=== PATIENT | male | born 1970 | race Caucasian/White ===

== ENCOUNTER → 2021-01-12 08:02 | Outpatient (CLI) | payer OTHER, SELFPAY ==
[2021-01-12 12:20] LABS: Absolute Lymphocyte Count 1.84 X10^3/uL (0.83-4.51); Absolute Neutrophil Count 2.5 X10^3/uL (2.0-7.7); Basophil# 0.05 X10^3/uL; Eosinophil# 0.15 X10^3/uL; Hematocrit 49.6 % (40-54); Hemoglobin 16.1 g/dL (13.0-16.5); Lymphocyte # 1.84 X10^3/ul (0.83-4.51); Lymphocyte % 36.7 % (19-41); Mean Corp Hgb Conc 32.5 g/dL (32-36); Mean Corpuscular Hgb 26.6 pg (27.0-32.0); Mean Corpuscular Volume 81.8 fL (80-94); Mean Platelet Vol. 10.7 fl (6.2-12.0); Monocyte# 0.43 X10^3/uL; Monocyte% 8.6 % (0-10); NRBC Flagged by Analyzer 0 % (0-5); Neutrophil # 2.53 X10^3/uL (2.7-7.7); Neutrophil % 50.3 % (47-70); Platelet Count 245 K/mm3 (150-450); RBC Distribution Width CV 13.7 % (11.6-14.6); RBC Distribution Width SD 40.4 fl (35.1-43.9); Red Blood Count 6.06 M/mm3 (4.6-6.2)
[2021-01-12 12:35] LABS: Vitamin D,25 Hydroxy 27.4 ng/mL
[2021-01-12 12:43] LABS: Hemoglobin A1c 5.7 % (3.8-5.6)
[2021-01-12 12:57] LABS: ALB/GLOB Ratio 0.9 RATIO (0.9-2.4); AST(SGOT) 25 U/L (15-37); Alanine Aminotransfer ALT/SGPT 40 U/L (16-61); Albumin, Serum 3.5 g/dL (3.2-5.0); Alkaline Phosphatase 65 U/L (45-117); Anion Gap 8 (5-15); BUN 20 mg/dL (7-18); BUN/Creat Ratio 16.1 RATIO (10-20); Chloride 106 mmol/L (98-107); Cholesterol 154 mg/dL (200); Creatinine, Serum 1.24 mg/dL (0.70-1.30); EST Glomerular Filtration Rate 66 mL/min (>60); Est Glom Filt Rate - Afr Amer 79 mL/min (>60); Globulin 3.7 g/dL (2.2-4.2); Glucose 106 mg/dL (74-106); High Density Lipoprotein 27 mg/dL; PSA,Total - Annual Screen 1.21 ng/mL (0.00-4.00); Potassium 4.1 mmol/L (3.5-5.1); Protein, Total 7.2 g/dL (6.4-8.2); Sodium Level 137 mmol/L (136-145); Thyroid Stim Hormone (TSH) 1.38 uIU/mL (0.358-3.74); Triglycerides 76 mg/dL; Very Low Density Lipoprotein 15 mg/dL (5-40)
[2021-01-16 13:07] LABS: Testosterone, Free 18.71 ng/dL (5.00-21.00)
[2021-01-16 15:00] LABS: Testosterone, % Free 4.34 % (1.50-4.20); Testosterone, Total 431 ng/dL (264-916)
== END ==
PROVIDERS: PCP Internal Medicine; Referring Provider Internal Medicine; Visit Provider Internal Medicine
DX: G47.33 Obstructive sleep apnea (adult) (pediatric) (principal); E66.9 Obesity, unspecified; R79.89 Other specified abnormal findings of blood chemistry; E29.1 Testicular hypofunction; Z13.220 Encounter for screening for lipoid disorders; Z12.5 Encounter for screening for malignant neoplasm of prostate
CPT/HCPCS: 36415; 80053; 80061; 82306; 83036; 84153; 84402; 84403; 84443; 85025; G0103

== ENCOUNTER → 2021-05-30 | Outpatient (CLI) | payer OTHER, SELFPAY | END | disposition home or self-care (01) | LOC: PAT 09-12 14:27 | PROVIDERS: PCP Internal Medicine; Referring Provider Internal Medicine; Visit Provider Internal Medicine Gastroenterology | DX: Z20.822 Contact with and (suspected) exposure to COVID-19 (principal) | CPT/HCPCS: 87426; C9803 ==

== ENCOUNTER → 2021-08-04 | Outpatient (CLI) | payer OTHER, SELFPAY ==
[2021-08-04 12:00] LABS: Absolute Neutrophil Count 2.3 X10^3/uL (2.0-7.7); Basophil# 0.04 X10^3/uL; Basophil% 0.9 % (0-1); Eosinophil# 0.11 X10^3/uL; Eosinophils% 2.5 % (0-5); Hematocrit 48.9 % (40-54); Hemoglobin 15.4 g/dL (13.0-16.5); Lymphocyte % 36.4 % (19-41); Mean Corp Hgb Conc 31.5 g/dL (32-36); Mean Corpuscular Hgb 26.1 pg (27.0-32.0); Mean Platelet Vol. 11.9 fl (6.2-12.0); Monocyte# 0.33 X10^3/uL; Monocyte% 7.5 % (0-10); NRBC Flagged by Analyzer 0 % (0-5); Neutrophil % 52.2 % (47-70); Platelet Count 238 K/mm3 (150-450); RBC Distribution Width CV 14.5 % (11.6-14.6); RBC Distribution Width SD 43.4 fl (35.1-43.9); Red Blood Count 5.89 M/mm3 (4.6-6.2); White Blood Count 4.4 K/mm3 (4.4-11.0)
[2021-08-04 12:18] LABS: ALB/GLOB Ratio 1.1 RATIO (0.9-2.4); AST(SGOT) 43 U/L (15-37); Alanine Aminotransfer ALT/SGPT 72 U/L (16-61); Albumin, Serum 3.6 g/dL (3.2-5.0); Alkaline Phosphatase 72 U/L (45-117); Anion Gap 5 (5-15); BUN 24 mg/dL (7-18); BUN/Creat Ratio 17.6 RATIO (10-20); Calcium,Total 8.9 mg/dL (8.5-10.1); Chloride 106 mmol/L (98-107); Creatinine, Serum 1.36 mg/dL (0.70-1.30); EST Glomerular Filtration Rate 59 mL/min (>60); Est Glom Filt Rate - Afr Amer 71 mL/min (>60); Globulin 3.3 g/dL (2.2-4.2); Glucose 170 mg/dL (74-106); Potassium 4.5 mmol/L (3.5-5.1); Protein, Total 6.9 g/dL (6.4-8.2); Sodium Level 137 mmol/L (136-145)
[2021-08-04 12:52] LABS: Hemoglobin A1c 5.9 % (3.8-5.6)
[2021-08-08 10:09] LABS: Testosterone, Free 15.94 ng/dL (5.00-21.00)
[2021-08-08 16:42] LABS: Testosterone, % Free 3.03 % (1.50-4.20); Testosterone, Total 526 ng/dL (264-916)
== END | disposition home or self-care (01) ==
LOC: BIMLAB 08:14
PROVIDERS: PCP Internal Medicine; Referring Provider Internal Medicine; Visit Provider Internal Medicine
DX: G47.33 Obstructive sleep apnea (adult) (pediatric) (principal); R79.89 Other specified abnormal findings of blood chemistry; E29.1 Testicular hypofunction; G47.30 Sleep apnea, unspecified; E66.9 Obesity, unspecified; R73.09 Other abnormal glucose
CPT/HCPCS: 36415; 80053; 83036; 84402; 84403; 85025

== ENCOUNTER → 2021-08-15 | Outpatient (CLI) | payer SELFPAY, OTHER ==
--- NOTE | 2021-08-15 10:40 | US_ITS ---
STUDY: ABDOMINAL ULTRASOUND - RIGHT UPPER QUADRANT REASON FOR VISIT: Male, 51 years old Elevated LFTs TECHNIQUE: Ultrasound evaluation of the right upper quadrant was performed with real-time and static velasquez-scale imaging. TECHNICAL QUALITY: Adequate. COMPARISON: None. FINDINGS: Liver: The liver measures 14.3 cm. There is increased echogenicity consistent with fatty infiltration. The bile ducts are within normal limits. There is hepatic color flow. The direction of portal flow is hepatopetal. There is no demonstrated mass lesion. Gallbladder: Normal distended gallbladder. The gallbladder wall measures 2.5 mm. There is a negative sonographic Felder''s sign. There is no pericholecystic fluid. There are no gallstones. Common Bile Duct (C.B.D.): The common bile duct measures 4.4 mm. Pancreas: Normal size of the head, body of the pancreas. The tail portion is obscured due to overlying bowel gas. There is normal echogenicity of the pancreas. There is no demonstrated pancreatic mass or cyst. Right Kidney: Normal size of the right kidney. The right kidney measures 12 cm x 6 cm x 5 cm. Normal renal cortex. The right cortex measures 1.9 cm. There is no demonstrated renal mass or cyst. There is no right hydronephrosis. US/Liver IMPRESSION: Fatty infiltration of the liver. Electronically Signed: Brendan Romero MD at 12:16 EDT ,
== END | disposition home or self-care (01) ==
PROVIDERS: PCP Internal Medicine; Referring Provider Internal Medicine; Visit Provider Internal Medicine
DX: R79.89 Other specified abnormal findings of blood chemistry (principal)
CPT/HCPCS: 76705

== ENCOUNTER → 2022-08-09 | Outpatient (CLI) | payer OTHER, SELFPAY ==
[2022-08-09 12:29] LABS: Absolute Lymphocyte Count 1.63 X10^3/uL (0.83-4.51); Absolute Neutrophil Count 2.1 X10^3/uL (2.0-7.7); Basophil# 0.03 X10^3/uL; Basophil% 0.7 % (0-1); Eosinophil# 0.08 X10^3/uL; Eosinophils% 1.9 % (0-5); Hematocrit 46.2 % (40-54); Lymphocyte # 1.63 X10^3/ul (0.83-4.51); Lymphocyte % 38.3 % (19-41); Mean Corp Hgb Conc 30.3 g/dL (32-36); Mean Corpuscular Hgb 24.9 pg (27.0-32.0); Mean Corpuscular Volume 82.1 fL (80-94); Mean Platelet Vol. 11.4 fl (6.2-12.0); Monocyte# 0.39 X10^3/uL; Monocyte% 9.2 % (0-10); NRBC Flagged by Analyzer 0 % (0-5); Neutrophil # 2.13 X10^3/uL (2.7-7.7); Neutrophil % 49.9 % (47-70); Platelet Count 241 K/mm3 (150-450); RBC Distribution Width CV 13.8 % (11.6-14.6); RBC Distribution Width SD 40.7 fl (35.1-43.9); Red Blood Count 5.63 M/mm3 (4.6-6.2); White Blood Count 4.3 K/mm3 (4.4-11.0)
[2022-08-09 12:51] LABS: Insulin 9.3 mU/L (2.6-37.6)
[2022-08-09 13:05] LABS: AST(SGOT) 25 U/L (15-37); Alanine Aminotransfer ALT/SGPT 32 U/L (16-61); Albumin, Serum 3.5 g/dL (3.2-5.0); Alkaline Phosphatase 75 U/L (45-117); Anion Gap 6 (5-15); BUN 20 mg/dL (7-18); BUN/Creat Ratio 14.5 RATIO (10-20); Calcium,Total 9.2 mg/dL (8.5-10.1); Chloride 107 mmol/L (98-107); Cholesterol 142 mg/dL (200); Creatinine, Serum 1.38 mg/dL (0.70-1.30); EST Glomerular Filtration Rate 58 mL/min (>60); Est Glom Filt Rate - Afr Amer 70 mL/min (>60); Globulin 3.5 g/dL (2.2-4.2); Glucose 97 mg/dL (74-106); High Density Lipoprotein 41 mg/dL; Potassium 4.4 mmol/L (3.5-5.1); Sodium Level 139 mmol/L (136-145); Thyroid Stim Hormone (TSH) 2.12 uIU/mL (0.358-3.74); Triglycerides 54 mg/dL; Very Low Density Lipoprotein 11 mg/dL (5-40)
[2022-08-09 13:48] LABS: Hemoglobin A1c 5.5 % (3.8-5.6)
[2022-08-15 14:09] LABS: Testosterone, % Free 3.38 % (1.50-4.20); Testosterone, Total 429 ng/dL (264-916)
== END | disposition home or self-care (01) ==
LOC: BIMLAB 08:00
PROVIDERS: PCP Internal Medicine; Visit Provider Internal Medicine
DX: R73.9 Hyperglycemia, unspecified (principal); E29.1 Testicular hypofunction; Z13.220 Encounter for screening for lipoid disorders; E66.9 Obesity, unspecified; K42.9 Umbilical hernia without obstruction or gangrene
CPT/HCPCS: 36415; 80053; 80061; 83036; 83525; 84402; 84403; 84443; 85025

== ENCOUNTER 2022-08-16 20:20 | Emergency (ER) | payer OTHER, SELFPAY ==
[2022-08-16 20:21] VITALS: BP 170/92; PULSE 75; RESP 18; TEMP 36.8; O2SAT 100; BMI 37.0
--- NOTE | 2022-08-16 20:48 | CONS.ORTHO ---
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 Believed to have a pectoralis major rupture. [facility] Medical History (Updated 08/16/22 @ 20:49 by Eric Espinal MD) Alcohol use Arthritis COVID CPAP (continuous positive airway pressure) dependence Non-smoker Shoulder pain Sleep apnea Wears glasses Home Medications cetirizine 5 mg-pseudoephedrine ER 120 mg tablet,extended release,12hr (Zyrtec-D) 1 tab PO Q12H 01/03/21 [History Last Taken Unknown] fluticasone propionate 50 mcg/actuation nasal spray,suspension 1 spray intranasal DAILY 01/03/21 [History Last Taken Unknown] melatonin 10 mg tablet 20 mg PO HS PRN Sleep 01/03/21 [History Last Taken Unknown] sildenafil 100 mg tablet (Viagra) 100 mg PO DAILY PRN sexual activity #10 tabs 03/02/22 [Rx Last Taken Unknown] ropinirole 0.25 mg tablet 0.75 mg PO QHS #90 tabs 08/08/22 [Rx Last Taken Unknown] testosterone cypionate 200 mg/mL intramuscular kit 200 mg IM Q10D #6 ea 08/15/22 [Rx Last Taken Unknown] Allergy/AdvReac Type Severity Reaction Status Date / Time Penicillins Allergy Severe Swelling Verified 08/16/22 20:23 sulfamethoxazole Allergy Severe Hives Verified 08/16/22 20:23 [From Bactrim] trimethoprim [From Bactrim] Allergy Severe Hives Verified 08/16/22 20:23 Family History Other CVA (cerebral vascular accident) Diabetes Surgical History H/O nasal septoplasty Myringotomy tube status Social History Smoking Status: Never smoker alcohol intake: current alcohol intake frequency: a few times a month Alcohol type: beer substance use type: does not use Vital Signs Vital Signs Vital Signs: 08/16/22 20:21 Temperature 98.3 F Temperature Source Temporal Pulse Rate 75 Respiratory Rate 18 Blood Pressure 170/92 H Blood Pressure Mean 118 Pulse Ox 100 Oxygen Delivery Method Room Air Weight Weight: 258 lb 6.108 oz Body Mass Index (BMI) 37.0 Assessment & Plan Assessment/Plan (1) Shoulder pain: PLAN: 52 M with suspected pec major rupture per ED. no other concerns. Recommended to provider to obtain plain films to rule out other derangement, and have the patient see me in the office tomorrow to arrange for stat MRI of shoulder / chest. Sling for comfort, rest ice for now.
--- NOTE | 2022-08-16 20:50 | RAD_ITS ---
STUDY: X-RAY - RIGHT SHOULDER REASON FOR EXAM: Male, 52 years old. pain TECHNIQUE: 4 view(s) of the shoulder. COMPARISON: None. FINDINGS: Normal glenohumeral articulation. Normal acromioclavicular joint. Normal acromion. Normal humeral head and visualized proximal humerus. The soft tissue structures are unremarkable. There is no demonstrated fracture. Normal visualized pulmonary apex. RAD/Shoulder min 2 Views IMPRESSION: Normal x-ray examination of the shoulder. Electronically Signed: Trip Baron MD at 21:06 EDT ,
--- NOTE | 2022-08-16 20:56 | EDS_ITS ---
HPI <ELDER [place] - Last Filed: 08/16/22 21:02> History of Present Illness Chief Complaint: Upper Extremity Injury Narrative Narrative: Patient is a 52-year-old male with history of restless leg syndrome who presents to the emergency department with a chest injury following heavy bench pressing. 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 He was lifting heavy weight during a bench press when he felt something give out in his chest. Patient does have ecchymosis, bruising to the right pectoral muscle as well as some irregularity on the right side. He denies any other injury. [facility] <ELDER [place] - Last Filed: 08/16/22 21:02> [facility] Medical History (Updated 08/16/22 @ 21:00 by ELDER [place]) Alcohol use Arthritis COVID CPAP (continuous positive airway pressure) dependence Non-smoker Shoulder pain Sleep apnea Wears glasses Home Medications cetirizine 5 mg-pseudoephedrine ER 120 mg tablet,extended release,12hr (Zyrtec- D) 1 tab PO Q12H 01/03/21 [History Last Taken Unknown] fluticasone propionate 50 mcg/actuation nasal spray,suspension 1 spray intranasal DAILY 01/03/21 [History Last Taken Unknown] melatonin 10 mg tablet 20 mg PO HS PRN Sleep 01/03/21 [History Last Taken Unknown] sildenafil 100 mg tablet (Viagra) 100 mg PO DAILY PRN sexual activity #10 tabs 03/02/22 [Rx Last Taken Unknown] ropinirole 0.25 mg tablet 0.75 mg PO QHS #90 tabs 08/08/22 [Rx Last Taken Unknown] testosterone cypionate 200 mg/mL intramuscular kit 200 mg IM Q10D #6 ea 08/15/22 [Rx Last Taken Unknown] hydrocodone-acetaminophen 5-325mg 5mg-325mg 1 tab PO Q4H PRN PRN Pain 3 days #10 TABLETS 08/16/22 [Rx Last Taken Unknown] naproxen 500 mg tablet (Naprosyn) 500 mg PO BID PRN pain #20 tabs 08/16/22 [Rx Last Taken Unknown] Allergy/AdvReac Type Severity Reaction Status Date / Time Penicillins Allergy Severe Swelling Verified 08/16/22 20:23 sulfamethoxazole Allergy Severe Hives Verified 08/16/22 20:23 [From Bactrim] trimethoprim [From Bactrim] Allergy Severe Hives Verified 08/16/22 20:23 Family History Other CVA (cerebral vascular accident) Diabetes Surgical History (Updated 08/16/22 @ 22:[address] Joesph Bateman MD) H/O nasal septoplasty Myringotomy tube status Social History Smoking Status: Never smoker alcohol intake: current alcohol intake frequency: a few times a month Alcohol type: beer substance use type: does not use ROS <ELDER [place] - Last Filed: 08/16/22 21:02> ROS ED ROS Narrative Constitutional: Negative for fever, chills, weight loss, weakness Eyes: Negative for vision loss, vision change, double vision ENT: Negative for any sore throat, ear pain, congestion Cardiovascular: Negative for any chest pain, tightness, palpitations Respiratory: Negative for any cough, sputum production, hemoptysis, dyspnea, dyspnea on exertion, orthopnea Gastrointestinal: Negative for any abdominal pain, nausea, vomiting, diarrhea, constipation, blood in stool, blood in vomit : Negative for any urinary frequency, dysuria, retention, blood in urine Muscle skeletal: Negative for any muscle joint pain, stiffness, myalgias, arthralgias, neck pain, back pain. Positive for right shoulder ecchymosis, right-sided pectoral pain Neurological: Negative for any headache, syncope, numbness or tingling, dizziness Skin: Negative for any rashes, lumps, itching, abrasions, lacerations Psychiatric: Negative for any depression, anxiety, stress, suicidal ideation, homicidal ideation Hematologic: Negative for any easy bruising, excessive bruising, easy bleeding Allergies: Negative for any eczema, hives, rash EXAM <ELDER [place] Last Filed: 08/16/22 21:02> Physical Exam Const Vital Signs: 08/16/22 20:21 Temperature 98.3 F Temperature Source Temporal Pulse Rate 75 Respiratory Rate 18 Blood Pressure 170/92 H Blood Pressure Mean 118 Pulse Ox 100 Oxygen Delivery Method Room Air MDM <ELDER [place] - Last Filed: 08/16/22 21:02> [facility] Treatment and Re-Evaluation Narrative: Patient appears generally well, patient appears nontoxic, vital signs are stable. All radiologic examinations were read, reviewed by the emergency department attending. From these reads, a plan of care will be put in place. Patient presents the emergency department after sustaining a pectoral injury while bench pressing heavy weight. Patient's physical examination is consistent with a pectoral tear. Patient has ecchymosis laterally with some edema proximal to shoulder peer as well as some sagging of the nipple. There is some irregularity of the pectoralis muscle between the right and left. I did speak with Dr. Espinal from orthopedics. He will see this patient outpatient. I did order a shoulder x-ray, this was unremarked for any acute process. Patient will be given anti-inflammatories as well as pain medicine for home. He is instructed to follow-up with orthopod. He has no further questions. He was given return precaution. Patient stable for discharge <Dr. Joseph Bateman MD - Last Filed: 08/16/22 22:52> [facility] Narrative Medical decision making narrative: Seen and evaluated independently and in conjunction with nurse practitioner. Agree with notes above unless documented otherwise. Sudden onset pain in the right chest wall while performing heavy bench pressing. No pain with moving about the shoulder. Exam: Ecchymosis medial proximal right upper arm, asymmetric swelling right pectoralis with prominence medially and lowered nipple, all consistent with acute pectoralis rupture. Full range of motion about the shoulder without any bony tenderness there or the clavicle or acromioclavicular joint. Three-view x-rays of the right shoulder obtained, on my interpretation no sign of any acute shoulder injury or coracoid process avulsion. Discussed with orthopedics for follow-up. Discharge Plan Triage Chief Complaint: Upper Extremity Injury ED Midlevel Provider: Ayaan Gooden ED Provider: Joseph Bateman Dx/Rx/DC Orders Clinical Impression: Pectoralis muscle rupture Instructions: ED Chest Wall Strain Prescriptions: New naproxen [Naprosyn] 500 mg tablet 500 mg PO BID PRN (Reason: pain) Qty: 20 0RF hydrocodone-acetaminophen 5-325 mg tablet 1 tab PO Q4H PRN PRN (Reason: Pain) 3 Days Qty: 10 0RF No Action cetirizine-pseudoephedrine [Zyrtec-D] 5-120 mg tablet extended release 12 hr 1 tab PO Q12H fluticasone propionate 50 mcg/actuation spray,suspension 1 spray intranasal DAILY Rx Instructions: administer into each nostril melatonin 10 mg tablet 20 mg PO HS PRN (Reason: Sleep) ropinirole 0.25 mg tablet 0.75 mg PO QHS Qty: 90 1RF Rx Instructions: Take one tab nightly for one week, then two tabs nightly for one week, then three tabs nightly thereafter. sildenafil [Viagra] 100 mg tablet 100 mg PO DAILY PRN (Reason: sexual activity) Qty: 10 2RF Rx Instructions: administer 30 minutes to 4 hours before activity testosterone cypionate 200 mg/mL kit 200 mg IM Q10D Qty: 6 1RF Primary Care Provider: Yolette Rubio Referrals: Yolette Rubio MD [Primary Care Provider] - Eric Espinal MD [Med Staff - Active Staff] - Activity Restrictions/Additional Instructions: Please continue to ice, you may use anti-inflammatories and pain medicine. Please return for worsening symptoms. Follow-up with orthopedics, call for appointment tomorrow. Disposition Disposition: Home, Self Care Discharge Date/Time: 08/16/22 21:09
[2022-08-16 21:08] VITALS: PULSE 69; RESP 16; O2SAT 97
== END 2022-08-16 21:09 | disposition home or self-care (01) ==
PROVIDERS: Emergency Provider Emergency Medicine; PCP Internal Medicine; Visit Provider Emergency Medicine
DX: S46.811A Strain of other muscles, fascia and tendons at shoulder and upper arm level, right arm, initial encounter (principal); R60.9 Edema, unspecified; S40.011A Contusion of right shoulder, initial encounter; X50.0XXA Overexertion from strenuous movement or load, initial encounter
CPT/HCPCS: 73030; 99282

== ENCOUNTER → 2022-08-24 | Outpatient (CLI) | payer OTHER, SELFPAY ==
--- NOTE | 2022-08-24 15:34 | MRI_ITS ---
EXAM: MR RIGHT UPPER EXTREMITY WITHOUT INTRAVENOUS CONTRAST, SHOULDER CLINICAL INDICATION: injury, INSTABILITY, PAIN AT PECT ATTACHMENT TECHNIQUE: Multiplanar and multisequence MR images of the right shoulder without intravenous contrast. COMPARISON: No relevant prior studies available. FINDINGS: TENDONS: SUPRASPINATUS: Unremarkable. No supraspinatus tendon tear. INFRASPINATUS: Low-grade articular sided tear involving the infraspinatus tendon footprint. SUBSCAPULARIS: Unremarkable. Intact. TERES MINOR: Unremarkable. Intact. BICEPS BRACHII, LONG HEAD: Unremarkable. The extra-articular biceps tendon is in the bicipital groove. The intra-articular biceps tendon is normal. LIGAMENTS: GLENOHUMERAL: Unremarkable. Intact. MUSCLES: Unremarkable. No rotator cuff muscle atrophy. FLUID: Unremarkable. No joint effusion. No significant fluid in the subacromial/subdeltoid bursa. CARTILAGE: Unremarkable. Articular cartilage intact. GLENOID LABRUM: Unremarkable. Intact, limited evaluation on non-arthrographic exam. BONES/JOINTS: Moderate hypertrophic degenerative changes acromioclavicular joint with mild mass effect on the underlying soft tissues. Type II acromion with curved undersurface. No subacromial enthesophyte or os acromiale. No fracture. No abnormal bone marrow signal. OTHER SOFT TISSUES: Unremarkable. No rotator interval edema. MRI/Upper Ext Joint Only(Routine) IMPRESSION: Low-grade articular sided partial-thickness tear involving the infraspinatus tendon footprint. No other significant rotator cuff or labral tear. Intact long head of biceps tendon. Mild to moderate hypertrophic degenerative changes of the acromioclavicular joint. Electronically Signed: Ruperto Finnegan MD at 21:50 EDT ,
--- NOTE | 2022-08-24 15:34 | MRI_ITS ---
HISTORY: injury -- pectoralis major Date: 08/24/2022 3:44 PM Technique: MRI examination obtained with multiplanar multi echo imaging. Location: RIGHT shoulder, RIGHT chest wall. Contrast: No contrast administered Comparison: No previous for comparison FINDINGS: BONY ELEMENTS: 1. Normal alignment bony elements without evidence of fracture malalignment. No destructive bony process noted. 2. There is normal alignment bony elements of the shoulder, glenohumeral joint. Mild AC joint degenerative change noted. JOINT SPACES: 1. Evaluation of the glenohumeral joint and LEFT shoulder under separate dictation. DEEP MUSCULAR COMPARTMENTS: 1. There is significant edema involving the lateral aspect of the pectoralis major. Pectoralis minor appears to be intact. The sternal, clavicular, and the upper abdominal slips of the pectoralis major appear to be involved with significant edema involving the lateral aspect of the muscle. Significant edema within the musculotendinous junction of the sternal and clavicular heads. Small slip of the inferior abdominal fibers of the pectoralis appear intact. Findings are consistent with a incomplete musculotendinous type II tear.. 2. Normal appearance of the deltoid. Long and short heads of the biceps are intact. Normal appearance of the coracobrachialis. 3. Rotator cuff to be detailed in separate report. NEURAL VASCULAR COMPARTMENTS: 1. Normal appearance of the neural vascular compartments SUBCUTANEOUS SOFT TISSUES. 1. Normal appearance of visualized obtained soft tissues. No soft tissue stranding, fluid. No masses or abscess accumulation. MRI/Chest without Contrast IMPRESSION: 1. Significant edema involving the lateral aspect of the RIGHT pectoralis major with apparent retraction, the tendinous anchor on the humerus/ridge of the intertubercular groove appears intact. The most inferior segment of the pectoralis major appears intact however the majority of the remaining sternal and clavicular heads appear to be torn at the musculotendinous junction. Findings are consistent with a incomplete type II tear. 2. Remaining muscular elements including pectoralis minor, teres, and coracobrachialis appear intact. Short and long head of the biceps appear intact. 3. Following review of the rotator cuff and glenohumeral joint and separate dedicated report. Electronically Signed: Broderick Hager MD at 19:04 EDT ,
== END | disposition home or self-care (01) ==
LOC: MRI 15:18
PROVIDERS: PCP Internal Medicine; Referring Provider Orthopaedic Surgery Sports Medicine; Visit Provider Orthopaedic Surgery Sports Medicine
DX: S99.011A Salter-Harris Type I physeal fracture of right calcaneus, initial encounter for closed fracture (principal); M25.519 Pain in unspecified shoulder; X58.XXXA Exposure to other specified factors, initial encounter
CPT/HCPCS: 71550; 73221

== ENCOUNTER 2022-09-03 09:13 | Day surgery (SDC) | payer OTHER, SELFPAY ==
[2022-09-03] VITALS (9 sets, daily range): BP systolic 125–149; BP diastolic 65–93; PULSE 54–75; RESP 16–18; TEMP 36.1–36.7; O2SAT 95–100; BMI 36.3
--- NOTE | 2022-09-03 09:27 | EKG12_ITS ---
Test Reason : PRE OP Blood Pressure : / mmHG Vent. Rate : 065 BPM Atrial Rate : 065 BPM P-R Int : 214 ms QRS Dur : 094 ms QT Int : 368 ms P-R-T Axes : 021 023 026 degrees QTc Int : 382 ms Sinus rhythm with 1st degree A-V block Otherwise normal ECG No previous ECGs available Confirmed by ANTONIO HAGAN, ASTRID ([id number]), sound editor KENNEDY CASTANON ([id number]) on 09/06/2022 10:40:44 AM Referred By: Eric Espinal Confirmed By:ASTRID ALVAREZ MD
[2022-09-03] MEDS: Lactated Ringers 1,000 ML 15 ML IV (10:03)
--- NOTE | 2022-09-03 10:49 | HP.PCM_ITS ---
HPI - General HPI Narrative DEMIAN OLIVA, is a 52 M who presents for right pectoralis major repair, possible allograft. We discussed the cons risks and benefits of using the allograft including the cost of that he was quoted $5-$8000. This may be necessary in cases where the tendon stump is extremely short or of poor quality. This will be an intraoperative decision. We discussed the recovery risks alternatives and benefits of the surgery as well as narcotic counseling and he will be in a sling afterwards follow-up in 2 weeks time change the bandage every few days but otherwise leave the Steri-Strips in place. He understood no further questions or concerns I marked the right shoulder he wished to proceed. MR#: [id number] Acct: [id number] Name: DEMIAN OLIVA Rep #: [id number] : 1970 Provider: Dr. Eric Espinal MD Age/Sex: 52/M Location: [facility] Status: Signed Intake Vital Signs 08/27/2306:47 Height 5 ft 10 in Weight: 254 lb BMI 36.4 BP 148/81 H Blood Pressure Location Rt brachial Position Sitting Respiration 17 Pulse Source Monitor Temp 97.2 F L Temp Source Temporal Pulse Oximetry (%) 96 Oxygen Delivery Method room air Intake Visit Reasons: RIGHT SHOULDER Chief Complaint: umbilical hernia Allergies Penicillins Allergy (Severe, Verified 08/30/22 14:55) Swellingsulfamethoxazole [From Bactrim] Allergy (Severe, Verified 08/30/22 14:55) Hivestrimethoprim [From Bactrim] Allergy (Severe, Verified 08/30/22 14:55) Hives Medications cetirizine 5 mg-pseudoephedrine ER 120 mg tablet,extended release,12hr (Zyrtec- D) 1 tab PO Q12H 01/03/21 [History Confirmed 08/30/22] fluticasone propionate 50 mcg/actuation nasal spray,suspension 1 spray in tranasal DAILY 01/03/21 [History Confirmed 08/30/22] melatonin 10 mg tablet 20 mg PO HS PRN Sleep 01/03/21 [History Confirmed 08/30/22] sildenafil 100 mg tablet (Viagra) 100 mg PO DAILY PRN sexual activity #10 tabs 03/02/22 [Rx Confirmed 08/30/22] ropinirole 0.25 mg tablet 0.75 mg (3 x 0.25 mg) PO QHS #90 tabs 08/08/22 [Rx Confirmed 08/30/22] testosterone cypionate 200 mg/mL intramuscular kit 200 mg IM Q10D #6 ea 08/15/22 [Rx Confirmed 08/30/22] PFSH Medical History Alcohol use Arthritis COVID CPAP (continuous positive airway pressure) dependence Non-smoker Shoulder pain Sleep apnea Wears glasses Surgical History H/O nasal septoplasty Myringotomy tube status Family History Other CVA (cerebral vascular accident) Diabetes Social History Smoking Status: Never smoker alcohol intake: current alcohol intake frequency: a few times a month Alcohol type: beer substance use type: does not use HPI RIGHT SHOULDER Details: Parts of this documentation were recorded by a scribe, this documentation accurately reflects the service provided and the decisions made by me, Dr. Eric Espinal MD 08/30/22 [id number]. DEMIAN OLIVA is a 52 year old M here today for follow-up right shoulder and chest MRI to assess for pectoralis major rupture. Ortho Exam General General: Yes no acute distress Neurologic: Yes alert and Yes oriented x3 Psychologic: Yes reasonable and appropriate Supplemental Info [facility] Imaging Services [address] [place] [id number] Chest without Contrast MR#: [id number] Acct: [id number] Name: DEMIAN OLIVA Rep #: [id number] : 1970 M 52 From: Broderick Hager MD PCP: Dr. Yolette Rubio MD Status: REG CLI Study: Chest without Contrast Date of Exam: 08/24/22 Exam# [id number] Ordering Dr: Eric Espinal MD HISTORY: injury -- pectoralis major Date: 08/24/2022 3:44 PM Technique: MRI examination obtained with multiplanar multi echo imaging. Location: RIGHT shoulder, RIGHT chest wall. Contrast: No contrast administered Comparison: No previous for comparison FINDINGS: BONY ELEMENTS: 1. Normal alignment bony elements without evidence of fracture malalignment. No destructive bony process noted. 2. There is normal alignment bony elements of the shoulder, glenohumeral joint. Mild AC joint degenerative change noted. JOINT SPACES: 1. Evaluation of the glenohumeral joint and LEFT shoulder under separate dictation. DEEP MUSCULAR COMPARTMENTS: 1. There is significant edema involving the lateral aspect of the pectoralis major. Pectoralis minor appears to be intact. The sternal, clavicular, and the upper abdominal slips of the pectoralis major appear to be involved with significant edema involving the lateral aspect of the muscle. Significant edema within the musculotendinous junction of the sternal and clavicular heads. Small slip of the inferior abdominal fibers of the pectoralis appear intact. Findings are consistent with a incomplete musculotendinous type II tear.. 2. Normal appearance of the deltoid. Long and short heads of the biceps are intact. Normal appearance of the coracobrachialis. 3. Rotator cuff to be detailed in separate report. NEURAL VASCULAR COMPARTMENTS: 1. Normal appearance of the neural vascular compartments SUBCUTANEOUS SOFT TISSUES. 1. Normal appearance of visualized obtained soft tissues. No soft tissue stranding, fluid. No masses or abscess accumulation. MRI/Chest without Contrast IMPRESSION: 1. Significant edema involving the lateral aspect of the RIGHT pectoralis major with apparent retraction, the tendinous anchor on the humerus/ridge of the intertubercular groove appears intact. The most inferior segment of the pectoralis major appears intact however the majority of the remaining sternal and clavicular heads appear to be torn at the musculotendinous junction. Findings are consistent with a incomplete type II tear. 2. Remaining muscular elements including pectoralis minor, teres, and coracobrachialis appear intact. Short and long head of the biceps appear intact. 3. Following review of the rotator cuff and glenohumeral joint and separate dedicated report. Electronically Signed: Broderick Hager MD at 19:04 EDT , Coding Level of Care Code Off vis,est,level 3 Diagnoses Pectoralis muscle rupture S29.011A Assessment and Plan Assessment and Plan (1) Pectoralis muscle rupture: Status: Inactive Plan: 52-year-old man with a right pectoralis major tendon rupture. Discussed again pros and cons risks and benefits of nonoperative versus operative repair. 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 He would like to go ahead with surgery. We have booked and consented for right pectoralis major repair possible allograft tissue in the form of an Arthrex dermal acellular allograft augmentation. I will try to get this done as soon as possible. Pros and cons risks and benefits were discussed with the patient including but not limited to infection, pain, stiffness, bleeding, damage to surrounding structures, neurovascular injury, recurrence or retear, failure or wear of hardware or fixation, instability, fracture, deep vein thrombosis and pulmonary embolism, anesthetic risks, , patient dissatisfaction, need for further surgery and other risks. Patient understood and wished to proceed with surgery, and signed the informed consent documentation. [facility] Medical History (Updated 08/31/22 @ 09:54 by Genoveva Smith) Alcohol use COVID Non-smoker Restless legs Shoulder pain Sleep apnea Wears glasses Home Medications cetirizine 5 mg-pseudoephedrine ER 120 mg tablet,extended release,12hr (Zyrtec- D) 1 tab PO QHS 01/03/21 [History Last Taken Unknown] melatonin 10 mg tablet 20 mg PO HS PRN Sleep 01/03/21 [History Last Taken Unknown] sildenafil 100 mg tablet (Viagra) 100 mg PO DAILY PRN sexual activity #10 tabs 03/02/22 [Rx Last Taken Unknown] ropinirole 0.25 mg tablet 0.75 mg (3 x 0.25 mg) PO QHS #90 tabs 08/08/22 [Rx Last Taken Unknown] testosterone cypionate 200 mg/mL intramuscular kit 200 mg IM Q10D #6 ea 08/15/22 [Rx Last Taken Unknown] Allergy/AdvReac Type Severity Reaction Status Date / Time Penicillins Allergy Severe Swelling Verified 08/31/22 09:46 sulfamethoxazole Allergy Severe Hives Verified 08/31/22 09:46 [From Bactrim] trimethoprim [From Bactrim] Allergy Severe Hives Verified 08/31/22 09:46 Family History Other CVA (cerebral vascular accident) Diabetes Surgical History (Updated 08/31/22 @ 09:54 by Genoveva Smith) H/O nasal septoplasty Myringotomy tube status Social History Smoking Status: Never smoker alcohol intake: current alcohol intake frequency: a few times a month Alcohol type: beer substance use type: does not use Vital Signs Vital Signs Vital Signs: 09/03/22 09:34 09/03/22 09:34 Temperature 98.1 F Temperature Source Temporal Pulse Rate 64 Respiratory Rate 18 Respiratory Pattern Normal Blood Pressure 125/83 H Blood Pressure Mean 97 Blood Pressure Source Monitor Blood Pressure Position Semi-Fowlers Blood Pressure Location Left Arm Pulse Ox 99 Oxygen Delivery Method Room Air Weight Weight: 253 lb Body Mass Index (BMI) 36.3
[2022-09-03] MEDS: Cefazolin 2 GM in 0.9% Normal Saline 100 ML IV (10:57)
[2022-09-03] MEDS: Bupivacaine Mpf 0.5% 30 ML VIAL (13:34)
--- NOTE | 2022-09-03 13:50 | OP.PCM_ITS ---
Problems Associated Problem List Diagnoses (1) Pectoralis muscle rupture: Report of Operation Date of Procedure: 09/03/22 Pre-Operative Diagnosis: Right pectoralis major tear Post-Operative Diagnosis: Same Surgery/Procedure Performed:: Right pectoralis major repair with arthroflex allograft augmentation Surgeon: Eric Espinal Type of Anesthesia: General and Local Anesthesiologist: Eric Espinal Estimated Blood Loss (mL): 50 Description of Procedure: Patient brought to the operating room theater. Placed supine on the table. Beachchair positioner and the Arthrex arm price Trimano used the patient's right side. 2 g IV Ancef administered prior to the start of the case. General anesthesia induced. Patient sat up at a 50 degree angle. Upper extremity prepped and draped in the usual sterile fashion with chlorhexidine-based prep solution allowing over 3 minutes drying time prior to draping. Preoperative timeout performed to confirm the site patient and the surgery. Began by making a standard deltopectoral incision. Carried dissection down through skin and subcutaneous tissue achieved meticulous hemostasis. The pectoralis major rupture was very apparent. The deep inserting fibers were still somewhat intact and therefore left alone, but the majority of the insertion was indeed completely torn and retracted.This was at the musculotendinous junction. Therefore I did elect to use the arthroflex dermal acellular allograft tissue. I prepared the site on the humerus for the proposed repair just lateral to the biceps tendon at the site of rupture. Left the remaining fibers intact. The pectoralis major insertion was quite large long and broad, very good muscle belly and strong remaing tendon to achieve purchase with the mina clamps. I tried a number of different configurations for the graft, as the muscle belly was too large to do a C shaped coverage, therefore finally settled to place the graft on the anterior surface dermal side down with the long side of the graft running superior to inferior. I tacked this in place using stay sutures 2-0 FiberWire suture at all 4 corners. I then used a running Krak?w stitches #2 FiberWire in a running locking fashion to create 6 suture tails at the tendon graft interface. I then drilled 3 holes at the proximal hu merus just lateral to the long head of the biceps using the included spade tipped drill bit with the Arthrex pectoralis major repair kit. I ensured to space these appropriately and stagger them to avoid creating a stress riser. I then used the 3 buttons, passed the free suture ends in opposite directions through each button - and one button in each hole flipped the buttons and tensioned sequentially the sutures to achieve appropriate repair and compression at the footprint of the tendon. Used the knot pusher device to tie my sutures and appropriately used 5 interrupted half hitches to complete the repair with the arm in adduction. I then passed the suture back through the graft over top of the graft to again slightly fixate this medially to the fascia at the anterior aspect of the pectoralis major ensuring to not strangulate the muscle. Repair was solid sutures cut short. Wound thoroughly irrigated repair was stable. Subcutaneous tissue closed with 2-0 Vicryl sutures and skin with 3-0 Monocryl. Skin cleaned with wet and dry dressing. 20 cc of quarter percent bupivacaine for local anesthesia. Skin cleaned with wet and dry dressing followed application of Steri-Strips and s ilver Mepilex dressing with an abduction pillow sling. Patient woken up from the general anesthetic transferred off the operating table taken to postanesthetic care unit in stable condition. All sponge needle instrument counts were correct no complications plan for the patient discharged home according to day surgery criteria. Grafts/Implants Used: arthrex arthroflex dermal allograft thick (SCR type) Complications none Admit VTE Documentation VTE Present on Admission: No VTE Mechan Device Prophylaxis: SCD's VTE Pharm Prophylaxis ordered?: No Reason prophylaxis not ordered:: Treatment Not Indicated Procedures Musculoskeletal 20xxx-29xxx: Other Procedure See Report
--- NOTE | 2022-09-03 14:05 | DCINST_ITS ---
Discharge Instructions Diet Discharge Diet: No restrictions Activity Lifting Restrictions: pendulums only 4x/day, ok for hand wrist elbow rom, no lifting over 1 pound Dressing / Incision Call your doctor if your incision/area has: Continuous Slow Oozing, Sudden Increased Bleeding, Increased Pain/ Swelling, Increased Redness, Foul Smelling Discharge and Swelling at the incision site Remove Dressing in: leave in place till F/U Follow Up Care Please Follow Up With: Eric Espinal MD When: 2 weeks Test Results: Test results from this visit will be discussed in further detail at your follow- up appointment, if applicable. Discharge Plan Admission Attending Provider: Eric Espinal Primary Care Provider: Yolette Rubio Discharge Orders/Prescriptions Prescriptions: New oxycodone-acetaminophen [Endocet] 5-325 mg tablet 1 tab PO Q4H MDD 6 PRN (Reason: pain) 5 Days Qty: 30 0RF No Action cetirizine-pseudoephedrine [Zyrtec-D] 5-120 mg tablet extended release 12 hr 1 tab PO QHS melatonin 10 mg tablet 20 mg PO HS PRN (Reason: Sleep) ropinirole 0.25 mg tablet 0.75 mg PO QHS Qty: 90 1RF Rx Instructions: Take one tab nightly for one week, then two tabs nightly for one week, then three tabs nightly thereafter. sildenafil [Viagra] 100 mg tablet 100 mg PO DAILY PRN (Reason: sexual activity) Qty: 10 2RF Rx Instructions: administer 30 minutes to 4 hours before activity testosterone cypionate 200 mg/mL kit 200 mg IM Q10D Qty: 6 1RF Referrals / Follow Up: Yolette Rubio MD [Primary Care Provider] - Eric Espinal MD [Med Staff - Active Staff] - Disposition Disposition (needs filled in before D/C Order can be placed): Home, Self Care
[2022-09-03] MEDS: HYDROcodone Bitartrate/Apap 5/325 Tablet PO (16:00)
== END 2022-09-03 16:30 | disposition home or self-care (01) ==
LOC: SDC 09:15 → AC 09:17
PROVIDERS: PCP Internal Medicine; Referring Provider Orthopaedic Surgery Sports Medicine; Visit Provider Orthopaedic Surgery Sports Medicine
PROC: (CPT 24341; principal; 2022-09-03 10:45)
DX: S29.011A Strain of muscle and tendon of front wall of thorax, initial encounter (principal); Z86.16 Personal history of COVID-19; X58.XXXA Exposure to other specified factors, initial encounter; M19.90 Unspecified osteoarthritis, unspecified site; Z79.899 Other long term (current) drug therapy; I44.0 Atrioventricular block, first degree
CPT/HCPCS: 24341; 01710; 93005; C1713; J7120; J2405

== ENCOUNTER 2022-11-30 07:00 | Outpatient (RCR) | payer OTHER, SELFPAY ==
--- NOTE | 2022-09-21 08:04 | HP.PTEVAL ---
Patient's Visit Information Visit Information Visit Information: DEMIAN OLIVA is a 52 year old M referred to Physical Therapy by Dr. Eric Espinal MD with a diagnosis of R Pec rupture s/p repair 09/03/22. Date of Evaluation: 09/21/22 Physical Therapist: Steven Arciniega, YANIQUET, OCS, CSCS Visit Plan Frequency: 1-2x /Week Duration: 3 Months Plan: 1-2x week for 8-12 weeks to start for progression of ROM per script. Given scap circles, elbow and wrist AROM, pendulum, supine stick flexion to 45 today, supine stick abduction to 30, supine stick er to 10-15 all with arm at side.) May progress these 10 degrees per week. Treat with ensuring progress with these and scar massage as needed PROM within limitations of script. 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 That was August 16. He knew it right away. Went to [facility] and x rays were OK and sent to ortho, MRI and surgery in the next two days. Since surgery was in a sling for two weeks, saw doctor after two weeks and got rid of sling, Doctor said be smart with his arm now. Allowed to do things out in front of him with arm at side. it is starting to loosen up nicely. 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 Does not have to carry anything with that arm. Basic aDLs are going OK. Is r handed but ambidextrous. No pain really, maybe an occasion anterior R shoulder pain. Exercises : none for shoulder except pendulums. Hobbies: power lifting and motorcycles. Driving a car. No timeframe for getting back to power lifting but not before 3 months. 4-6 months to bench. Objective Objective: Walks into PT I, good arm swing and no obvious discomfort or hesitation. dons and doffs shirt I taking care with R UE. Incision is anteriorly at R shoulder adn healed well, no signs of excessive redness, heat or swelling. Mild to moderate scar tissue palpable underneath. Neck, scap and elbow and wrist AROM WFL today and without discomfort save slightly with retraction of scapula. AROM L g-h and shoulder WFL and full adn painfree. PROM to R shoulder, flexion to 75 degrees limited by slight end feel, abduction to 33 degrees with tightness being limiting factor, er to 12 degrees today limited by slight discomfort and tightness. strength R shoulder not tested. Precautions per script reviewed with patient as well as ability to continue working rest of body as long as R shoulder relaxed. Balance/Special Test Scores Quick DASH Score: 45.4525 Goals Goal 1:: Progress ROM per script to full at 3 months Goal Time Frame: 8-12 Weeks Goal 2:: Sleep without interruption in bed Goal Time Frame: 8-12 Weeks Goal 3:: Pt life feel back to normal outside of power lifting Goal Time Frame: 12-16 Weeks Goal 4:: David to return to power lifting Goal Time Frame: 4-6 months Goal 5:: qucik dash score 14 or better Goal Time Frame: 8-12 Weeks Rehabilitation Potential Physical Therapy Diagnosis: Pec rupture and surgery with limtiations in ROM and resistance. Rehabilitation Potential: Good Anticipated Interventions Patient/Client Instruction: Educate patient on: Condition and Plan of Care For the Purpose of:: To increase ROM, To improve nutrient delivery to tissue, To improve muscle performance and motor function and To increase tolerance to activity/condition/position Therapeutic Exercise to Include: Passive ROM and Active ROM For the Purpose of:: To increase ROM, To improve nutrient delivery to tissue, To improve muscle performance and motor function, To increase tolerance to activity/condition/position, To improve ability of physical actions for home/community/work/leisure and To improve health of tissue Manual Therapy Techniques to Include: Petrissage, Scar massage and Passive ROM For the Purpose of:: To increase ROM, To improve nutrient delivery to tissue, To increase oxygenation perfusion, To increase tolerance to activity/condition/position and To improve ability of physical actions for home/community/work/leisure Cryotherapy (ice pack, ice massage): Yes For the Purpose of:: To decrease swelling/inflammation Text: Thank you for the opportunity to evaluate your patient. For Medicare and Medicare HMO plans, please review the plan of care and approve it. It will need to be FAXED BACK to us at [phone] for Medicare purposes. For Medicare only, by signing this I certify the plan of care. Please let me know if there are questions or concerns regarding this plan of care. Physician Signature: Date:
--- NOTE | 2022-10-12 07:27 | HP.PTREVAL ---
Re-Evaluation Intro: Dr. Eric Espinal MD, It has been my pleasure to treat DEMIAN OLIVA over the last 4 visits for R Pec rupture s/p repair 09/03/22. Please see the progress note below for an update on the physical therapy plan of care! Subjective Subjective: N real pain, soreness in shoulder. To doctor on Saturday. Normal healing stuff going on. Objective Objective/Function: AAROM 130 flexion, abd 67 , er to 30. PROM 135 flexion, abd 88, er 60 is his limits by stretching feeling. Incision feels very patent and very little scarring, not tender. Pt pain is as expected, PROM better than his limits on script. Overall doing very wella nd ready to progress from PT point of view. Will see doctor Saturday for f/u. Plan Plan Plan: Next session: PROM, AAROM and check for new doctor order for progression from below numbers. 1-2x week for 8-12 weeks to start for progression of ROM per script. Given scap circles, elbow and wrist AROM, pendulum, supine stick flexion to 45 today, supine stick abduction to 30, supine stick er to 10-15 all with arm at side.) May progress these 10 degrees per week. Treat with ensuring progress with these and scar massage as needed PROM within limitations of script. /PROM limitations:(focus with arm in slightly adducted position) 09/21 : flexion/er/abduction 45/10/30 09/28: 55/20/40 8: 65/30/50 10/13: 75/40/60 10/20: 85/50/70 At least until f/u with doctor, Balance/Gait/Functional tests Balance/Special Test Scores Quick DASH Score: 45.4525 Goals Goals Goal 1:: Progress ROM per script to full at 3 months Goal Time Frame: 8-12 Weeks Goal Progress: Progressing Goal 2:: Sleep without interruption in bed Goal Time Frame: 8-12 Weeks Goal Progress: chair right now Goal 3:: Pt life feel back to normal outside of power lifting Goal Time Frame: 12-16 Weeks Goal 4:: David to return to power lifting Goal Time Frame: 4-6 months Goal 5:: qucik dash score 14 or better Goal Time Frame: 8-12 Weeks Anticipated Interventions Anticipated Interventions Patient/Client Instruction: Educate patient on: Condition and Plan of Care For the Purpose of:: To increase ROM, To improve nutrient delivery to tissue, To improve muscle performance and motor function and To increase tolerance to activity/condition/position Therapeutic Exercise to Include: Passive ROM and Active ROM For the Purpose of:: To increase ROM, To improve nutrient delivery to tissue, To improve muscle performance and motor function, To increase tolerance to activity/condition/position, To improve ability of physical actions for home/community/work/leisure and To improve health of tissue Manual Therapy Techniques to Include: Petrissage, Scar massage and Passive ROM For the Purpose of:: To increase ROM, To improve nutrient delivery to tissue, To increase oxygenation perfusion, To increase tolerance to activity/condition/position and To improve ability of physical actions for home/community/work/leisure Cryotherapy (ice pack, ice massage): Yes For the Purpose of:: To decrease swelling/inflammation Re-Evaluation Ending Re-evaluation ending: Please do not hesitate to contact me at [phone] by phone or if you have questions or concerns regarding this new plan of care! Sincerely, Steven Arciniega, DPT, OCS, CSCS
--- NOTE | 2022-11-23 08:43 | HP.PTREVAL ---
Re-Evaluation Intro: Dr. Eric Espinal MD, It has been my pleasure to treat DEMIAN OLIVA over the last 10 visits for R Pec rupture s/p repair 09/03/22. Please see the progress note below for an update on the physical therapy plan of care! Subjective Subjective: No real pain outside of minimal trasnient shoulder pain which is improving. Sometimes crampy in pec but improving. Life outside of power lifting is normal. Objective Objective/Function: Full aROM B shoulder. Some atrophy still apparent on R side pec but no pain and feeling good. not much scarring palpable under incision and good tissue movement. Tolerating light db bench and cable flyes well today. Seems to have a good handle on the importance of slow steady progression. Plan Plan Plan: Plan to f/u monthly to ensure progress toward full pwer lifting SLOWLY. Balance/Gait/Functional tests Balance/Special Test Scores Quick DASH Score: 6.8175 Goals Goals Goal 1:: Progress ROM per script to full at 3 months Goal Time Frame: 8-12 Weeks Goal Progress: Goal Met Goal 2:: Sleep without interruption in bed Goal Time Frame: 8-12 Weeks Goal Progress: Goal Met Goal 3:: Pt life feel back to normal outside of power lifting Goal Time Frame: 12-16 Weeks Goal Progress: Goal Met Goal 4:: David to return to power lifting Goal Time Frame: 4-6 months Goal Progress: Progressing Goal 5:: qucik dash score 14 or better Goal Time Frame: 8-12 Weeks Goal Progress: Goal Met Goal 6:: Progressing toward power lifting exercises I on own without regular therapist input. Goal Time Frame: 6-8 Weeks Goal Progress: NEW Anticipated Interventions Anticipated Interventions Patient/Client Instruction: Educate patient on: Condition and Plan of Care For the Purpose of:: To increase ROM, To improve nutrient delivery to tissue, To improve muscle performance and motor function and To increase tolerance to activity/condition/position Therapeutic Exercise to Include: Passive ROM and Active ROM For the Purpose of:: To increase ROM, To improve nutrient delivery to tissue, To improve muscle performance and motor function, To increase tolerance to activity/condition/position, To improve ability of physical actions for home/community/work/leisure and To improve health of tissue Manual Therapy Techniques to Include: Petrissage, Scar massage and Passive ROM For the Purpose of:: To increase ROM, To improve nutrient delivery to tissue, To increase oxygenation perfusion, To increase tolerance to activity/condition/position and To improve ability of physical actions for home/community/work/leisure Cryotherapy (ice pack, ice massage): Yes For the Purpose of:: To decrease swelling/inflammation Re-Evaluation Ending Re-evaluation ending: Please do not hesitate to contact me at [phone] by phone or if you have questions or concerns regarding this new plan of care! Sincerely, Steven Arciniega, DPT, OCS, CSCS
--- NOTE | 2023-01-08 17:19 | HP.PT.NRP ---
Patient Information Patient Information: DEMIAN OLIVA was seen in my office for initial evaluation on 09/21/22. The following Plan of Care was established for this patient: POC Established Initial Frequency: 1-2x /Week Initial Duration: 3 Months Anticipated Interventions Patient/Client Instruction: Educate patient on: Condition and Plan of Care For the Purpose of:: To increase ROM, To improve nutrient delivery to tissue, To improve muscle performance and motor function and To increase tolerance to activity/condition/position Therapeutic Exercise to Include: Passive ROM and Active ROM For the Purpose of:: To increase ROM, To improve nutrient delivery to tissue, To improve muscle performance and motor function, To increase tolerance to activity/condition/position, To improve ability of physical actions for home/community/work/leisure and To improve health of tissue Manual Therapy Techniques to Include: Petrissage, Scar massage and Passive ROM For the Purpose of:: To increase ROM, To improve nutrient delivery to tissue, To increase oxygenation perfusion, To increase tolerance to activity/condition/position and To improve ability of physical actions for home/community/work/leisure Cryotherapy (ice pack, ice massage): Yes For the Purpose of:: To decrease swelling/inflammation Last Seen Last Seen: This patient was last seen in our office 11/30/22. Pertinent comments regarding their Physical therapy will appear below: Pt seen 11 visits of POC and was 85% better. He did not schedule or attend any further visits. I will discontinue due to nonattendance. At this point I will be discontinuing this patient from physical therapy. I would be happy to see this patient again in the future if found appropriate by the physician. Thank you! Steven Arciniega, DPT, OCS, CSCS Balance/Gait/Functional tests Balance/Special Test Scores Quick DASH Score: 6.8101
== END 2022-11-30 19:00 | disposition home or self-care (01) ==
LOC: PT 07:00
PROVIDERS: PCP Internal Medicine; Referring Provider Orthopaedic Surgery Sports Medicine; Visit Provider Orthopaedic Surgery Sports Medicine
DX: S29.011D Strain of muscle and tendon of front wall of thorax, subsequent encounter (principal)
CPT/HCPCS: 97110; 97140; 97161; 97164; 97530

== ENCOUNTER 2023-02-27 05:17 | Day surgery (SDC) | payer OTHER, SELFPAY ==
[2023-02-27 05:53] VITALS: BP 147/95; PULSE 65; RESP 18; TEMP 36.4; O2SAT 98; BMI 39.3
[2023-02-27] MEDS: Lactated Ringers 1,000 ML 15 ML IV (06:07)
--- NOTE | 2023-02-27 06:30 | COLBX_PTH ---
PATHOLOGY RESULTS PATIENT: DEMIAN OLIVA LOC: EN U#:[id number] AGE/SX: 52/M ROOM: RE02/27/[address]: Dr. Reyes Song DO : 1970 BED: DIS: 02/27/2023 SPEC #: [id number] RECD: 02/28/23 07:30 STATUS: BERNIE TAURUS #: [id number] [place]: 02/27/23 06:[address]: Reyes Song DEPT: SURGICAL PATHOLOGY RECD BY: Mia Rosario ENTERED: 02/28/23 07:30 SP TYPE: COLON BX OTHR DR: Dr. Yolette Rubio MD Tissues: SPLENIC FLEXURE Procedures: Surgery Specimen Level IV HEADER OPERATION: Colonoscopy - open access with biopsy PRE-OP DIAGNOSIS: Colon cancer screening TISSUE SUBMITTED: Splenic flexure polyp biopsy MICROSCOPIC DIAGNOSIS Colonic polyp at splenic flexure, biopsy: Polypoid fragment of benign colonic mucosa. See comment. AM:yanni 03/01/2023 COMMENT Neither hyperplastic nor adenomatous change is identified. Clinical correlation is suggested. MICROSCOPIC DESCRIPTION Slides are reviewed. GROSS DESCRIPTION Received in fixative is one container labeled with the patient's name and designated splenic flexure polyp biopsy. The specimen consists of one irregular fragment of light saldana soft tissue that measures 0.2 x 0.1 x 0.1 cm. The specimen is totally submitted in one cassette. / MODESTA:yanni 02/28/2023 TC:5 CPT: 57830
--- NOTE | 2023-02-27 06:36 | HP.PCM_ITS ---
HPI - General General Date of Admission: 02/27/23 Date of Service: 02/27/23 Chief Complaint: Screening colonoscopy HPI Narrative DEMIAN OLIVA, is a 52 M who presents today for screening:. He has a past medical history of obstructive sleep apnea, and metabolic syndrome. He arrives here for screening colonoscopy. He has never had a colonoscopy in the past. [facility], [facility] Medical History Alcohol use COVID Non-smoker Restless legs Shoulder pain Sleep apnea Wears glasses Home Medications cetirizine 5 mg-pseudoephedrine ER 120 mg tablet,extended release,12hr (Zyrtec- D) 1 tab PO QHS 01/03/21 [History Last Taken 02/26/23] melatonin 10 mg tablet 20 mg PO HS PRN Sleep 01/03/21 [History Last Taken 02/26/23] sildenafil 100 mg tablet (Viagra) 100 mg PO DAILY PRN sexual activity #10 tabs 03/02/22 [Rx Last Taken Unknown] testosterone cypionate 200 mg/mL intramuscular kit 200 mg IM Q10D #6 ea 01/10/23 [Rx Last Taken 02/15/23] ropinirole 0.25 mg tablet 0.75 mg (3 x 0.25 mg) PO QHS #270 tabs 02/14/23 [Rx Last Taken Unknown] Allergy/AdvReac Type Severity Reaction Status Date / Time Penicillins Allergy Severe Swelling Verified 02/27/23 05:51 sulfamethoxazole Allergy Severe Hives Verified 02/27/23 05:51 [From Bactrim] trimethoprim [From Bactrim] Allergy Severe Hives Verified 02/27/23 05:51 Family History Other CVA (cerebral vascular accident) Diabetes Surgical History (Updated 02/22/23 @ 14:25 by Genoveva Smith) H/O nasal septoplasty History of repair of pectoralis muscle tear Myringotomy tube status Social History Smoking Status: Never smoker alcohol intake: current alcohol intake frequency: a few times a month Alcohol type: beer substance use type: does not use ROS Review of Systems ROS Unobtainable: other Constitutional Constitutional: Denies fatigue, fever(s), poor appetite, weight gain or weight loss ENT HEENT: Denies mouth lesions Cardiovascular Cardiovascular: Denies abdominal bloating, abdominal edema or abdominal pain Respiratory/Chest Respiratory/Chest: Denies change in mental status, change in phlegm color, chest congestion or chest tightness Gastrointestinal Gastrointestinal: Denies belching, bloating, change in bowel habits, change in stool character, chewing difficulty, coffee ground emesis, constipation, cramping, diarrhea, dyspepsia, dysphagia, early satiety, excessive flatus, fecal incontinence, heartburn, hematemesis, hematochezia, hemorrhoids, loose stools, melena, nausea, odynophagia, rectal bleeding, tenesmus, vomiting or weight changes Genitourinary Genitourinary: Denies abdominal discomfort, burning urination or itching Musculoskeletal Musculoskeletal: Reports as per HPI; Denies muscle weakness or myalgias Integumentary Integumentary: Denies jaundice Neurologic Neurologic: Denies lack of coordination or weakness Psychiatric Psychiatric: Denies confusion, depression, memory loss, mood swings, paranoia or suicidal ideation Endocrine Endocrinology: Denies systems reviewed and no addt'l complaints, except as documented Hematologic/Lymphatic Hematologic/Lymphatic: Denies anemia, easy bleeding, easy bruising or lymphadenopathy Allergic/Immunologic Allergic/Immunologic: Denies systems reviewed and no addt'l complaints, except as documented Vital Signs Vital Signs Vital Signs: 02/27/23 05:53 02/27/23 05:53 Temperature 97.6 F L Temperature Source Temporal Pulse Rate 65 Respiratory Rate 18 Respiratory Pattern Normal Blood Pressure 147/95 H Blood Pressure Mean 112 Blood Pressure Source Monitor Blood Pressure Position Semi-Fowlers Blood Pressure Location Left Arm Pulse Ox 98 Oxygen Delivery Method Room Air Weight Weight: 274 lb 4.081 oz Body Mass Index (BMI) 39.3 Physical Exam Const alert General Appearance: cooperative Orientation / Consciousness: oriented to person HEENT hearing grossly normal bilaterally Head and Scalp: normal to inspection Face and Sinus: face symmetric Nose: external nose normal Mouth: oral and palatal mucosa normal Eyes conjunctivae normal General Eye: normal appearance of both eyes Neck full ROM General: normal visual inspection Lymph Lymphatic: no lymphadenopathy noted Chest inspection of chest normal and palpation of chest normal Chest: symmetrical chest wall rise Resp normal respiratory effort Effort and Inspection: able to speak in complete sentences Cardio regular rate GI non-distended Percussion: normal to percussion Rectal Exam: deferred Neuro Speech: speech normal Gait (Neuro): normal gait Assessment & Plan Assessment/Plan (1) Colon cancer screening: PLAN: He was explained alternatives, risk, benefits including not withstanding bleeding, infection, sepsis, perforation, need for emergent surgery and . He will have an ASA of 3.
[2023-02-27 07:00] VITALS: BP 147/95; BP 89/51; PULSE 63; RESP 16; TEMP 36.5; O2SAT 95
--- NOTE | 2023-02-27 07:00 | OP.COLON_ITS ---
Patient Name: Saud Siegel Procedure Date: 02/27/2023 6:23 AM Date of : 1970 Age: 52 Procedure: Colonoscopy Indications: Screening for colorectal malignant neoplasm Providers: Reyes Song DO Referring MD: Reyes Song DO Medicines: Monitored Anesthesia Care Patient Profile: This is a 52 year old male. Refer to note in patient chart for documentation of history and physical. Last Colonoscopy: none. The patient's first colonoscopy is today. Complications: No immediate complications. Procedure: Pre-Anesthesia Assessment: - Prior to the procedure, a History and Physical was performed, and patient medications and allergies were reviewed. The patient is competent. The risks and benefits of the procedure and the sedation options and risks were discussed with the patient. All questions were answered and informed consent was obtained. Patient identification and proposed procedure were verified by the physician. Mental Status Examination: alert and oriented. Airway Examination: normal oropharyngeal airway and neck mobility. Respiratory Examination: clear to auscultation. CV Examination: normal. Prophylactic Antibiotics: The patient does not require prophylactic antibiotics. Prior Anticoagulants: The patient has taken no anticoagulant or antiplatelet agents. ASA Grade Assessment: III - A patient with severe systemic disease. After reviewing the risks and benefits, the patient was deemed in satisfactory condition to undergo the procedure. The anesthesia plan was to use monitored anesthesia care (MAC). Immediately prior to administration of medications, the patient was re-assessed for adequacy to receive sedatives. The heart rate, respiratory rate, oxygen saturations, blood pressure, adequacy of pulmonary ventilation, and response to care were monitored throughout the procedure. The physical status of the patient was re-assessed after the procedure. After I obtained informed consent, the scope was passed under direct vision. Throughout the procedure, the patient's blood pressure, pulse, and oxygen saturations were monitored continuously. The Colonoscope was introduced through the anus and advanced to the cecum, identified by appendiceal orifice and ileocecal valve. The colonoscopy was performed without difficulty. The patient tolerated the procedure well. The quality of the bowel preparation was adequate. The ileocecal valve, appendiceal orifice, and rectum were photographed. Scope In: 6:42:10 AM Scope Withdrawal Time 0 hours 9 minutes 44 seconds Scope Out: 6:53:52 AM Total Procedure Duration Time 0 hours 11 minutes 42 seconds Findings: The perianal and digital rectal examinations were normal. Multiple small and large-mouthed diverticula were found in the recto-sigmoid colon, sigmoid colon and descending colon. A 3 mm polyp was found in the splenic flexure. The polyp was sessile. The polyp was removed with a jumbo cold forceps. Resection and retrieval were complete. Verification of patient identification for the specimen was done. Estimated blood loss was minimal. Impression: - Diverticulosis in the recto-sigmoid colon, in the sigmoid colon and in the descending colon. - One 3 mm polyp at the splenic flexure, removed with a jumbo cold forceps. Resected and retrieved. Recommendation: - Repeat colonoscopy in 5 years for surveillance. - Continue present medications. Procedure Code(s): --- Professional --- 48915, Colonoscopy, flexible; with biopsy, single or multiple CPT copyright 2021 [employer]. All rights reserved. The codes documented in this report are preliminary and upon geography department chair review may be revised to meet current compliance requirements. Reyes Song DO 02/27/2023 6:59:20 AM This report has been signed electronically. Number of Addenda: 0 Note Initiated On: 02/27/2023 6:23 AM
--- NOTE | 2023-02-27 07:00 | OP.CCLET_ITS ---
02/27/2023 Yolette Rubio [facility] [address] [place] [address] Re : Colonoscopy procedure for Saud Siegel Dear Dr. Rubio This procedure was performed on Monday, February 27, 2023. My impressions and recommendations are as follows: Impressions : - Diverticulosis in the recto-sigmoid colon, in the sigmoid colon and in the descending colon. - One 3 mm polyp at the splenic flexure, removed with a jumbo cold forceps. Resected and retrieved. Recommendations : - Repeat colonoscopy in 5 years for surveillance. - Continue present medications. My findings are described in the full procedure note, which is enclosed. If I can be of further assistance, please feel free to contact me at . Sincerely, Reyes Song, 02/27/2023 6:59:20 AM This report has been signed electronically.
[2023-02-27 07:05] VITALS: BP 147/95; BP 97/57; PULSE 56; RESP 16; O2SAT 95
[2023-02-27 07:10] VITALS: BP 147/95; BP 90/55; PULSE 57; RESP 16; O2SAT 95
[2023-02-27 07:15] VITALS: BP 121/71; BP 147/95; PULSE 65; RESP 16; TEMP 36.7; O2SAT 96
[2023-02-27 07:36] VITALS: BP 147/95
== END 2023-02-27 07:50 | disposition home or self-care (01) ==
LOC: EN 05:17 → AC 05:19
PROVIDERS: PCP Internal Medicine; Referring Provider Internal Medicine Gastroenterology; Visit Provider Internal Medicine Gastroenterology
PROC: 0DJD8ZZ Inspection of Lower Intestinal Tract, Via Natural or Artificial Opening Endoscopic (ICD-10-PCS; CPT 45378; principal; 2023-02-27 06:25)
DX: Z12.11 Encounter for screening for malignant neoplasm of colon (principal); K63.5 Polyp of colon; K57.30 Diverticulosis of large intestine without perforation or abscess without bleeding
CPT/HCPCS: 45380; 88305; J7120; J2405

== ENCOUNTER → 2024-01-20 | Outpatient (CLI) | payer OTHER, SELFPAY ==
[2024-01-27 12:08] LABS: Testosterone, % Free 3.46 % (1.50-4.20); Testosterone, Free 18.17 ng/dL (5.00-21.00); Testosterone, Total 525 ng/dL (264-916)
== END | disposition home or self-care (01) ==
LOC: BIMLAB 08:02
PROVIDERS: PCP Internal Medicine; Visit Provider Internal Medicine
DX: R86.1 Abnormal level of hormones in specimens from male genital organs (principal)
CPT/HCPCS: 36415; 84402; 84403

== ENCOUNTER → 2024-07-06 | Outpatient (CLI) | payer OTHER, SELFPAY ==
[2024-07-06 12:35] LABS: Absolute Lymphocyte Count 1.94 X10^3/uL (0.83-4.51); Absolute Neutrophil Count 2.6 X10^3/uL (2.0-7.7); Basophil# 0.03 X10^3/uL; Basophil% 0.6 % (0-1); Eosinophil# 0.13 X10^3/uL; Eosinophils% 2.5 % (0-5); Hematocrit 42.7 % (40-54); Hemoglobin 12.6 g/dL (13.0-16.5); Lymphocyte # 1.94 X10^3/ul (0.83-4.51); Mean Corp Hgb Conc 29.5 g/dL (32-36); Mean Corpuscular Hgb 22.5 pg (27.0-32.0); Mean Corpuscular Volume 76.3 fL (80-94); Mean Platelet Vol. 10.8 fl (6.2-12.0); Monocyte# 0.51 X10^3/uL; Monocyte% 9.7 % (0-10); NRBC Flagged by Analyzer 0 % (0-5); Neutrophil # 2.61 X10^3/uL (2.7-7.7); Neutrophil % 49.8 % (47-70); Platelet Count 281 K/mm3 (150-450); RBC Distribution Width CV 15.5 % (11.6-14.6); RBC Distribution Width SD 42.1 fl (35.1-43.9); White Blood Count 5.2 K/mm3 (4.4-11.0)
[2024-07-06 15:56] LABS: ALB/GLOB Ratio 1.7 RATIO (0.9-2.4); AST(SGOT) 39 U/L (<=37); Alanine Aminotransfer ALT/SGPT 48 U/L (<=46); Albumin, Serum 4.1 g/dL (3.5-5.0); Alkaline Phosphatase 64 U/L (40-129); Anion Gap 12 (5-15); BUN 16 mg/dL (4-19); BUN/Creat Ratio 13.1 RATIO (10-20); Calcium,Total 9.1 mg/dL (7.6-11.0); Carbon Dioxide 22.7 mmol/L (21.0-32.0); Chloride 101 mmol/L (98-108); Creatinine, Serum 1.22 mg/dL (0.70-1.20); EST Glomerular Filtration Rate 71 (>60); Globulin 2.5 g/dL (2.2-4.2); Glucose 101 mg/dL (70-99); PSA,Total - Annual Screen 1.24 ng/mL (0.02-4.00); Potassium 4.2 mmol/L (3.3-5.1); Protein, Total 6.6 g/dL (5.9-8.4); Sodium Level 136 mmol/L (133-145); Total Bilirubin 0.35 mg/dL (0.00-1.30); Vitamin B12 794 pg/mL (180-914); Vitamin D,25 Hydroxy 14.7 ng/mL (30-100)
[2024-07-06 16:15] LABS: Cholesterol 173 mg/dL (<=200); High Density Lipoprotein 30 mg/dL; Low Density Lipoprotein Calc. 109 mg/dL; Triglycerides 168 mg/dL; Very Low Density Lipoprotein 34 mg/dL (5-40); cholesterol:hdl ratio screen 5.77
== END | disposition home or self-care (01) ==
LOC: BIMLAB 07:59
PROVIDERS: PCP Internal Medicine; Referring Provider Internal Medicine; Visit Provider Internal Medicine
DX: R79.89 Other specified abnormal findings of blood chemistry (principal); R73.09 Other abnormal glucose; E29.1 Testicular hypofunction; G47.39 Other sleep apnea; G47.33 Obstructive sleep apnea (adult) (pediatric); Z12.5 Encounter for screening for malignant neoplasm of prostate; E55.9 Vitamin D deficiency, unspecified; E53.8 Deficiency of other specified B group vitamins; Z13.220 Encounter for screening for lipoid disorders
CPT/HCPCS: 36415; 80053; 80061; 82306; 82607; 83036; 84153; 84402; 84403; 84443; 85025; G0103